=== PATIENT | female | born 1970 | race Caucasian/White ===

== ENCOUNTER 2020-05-14 13:18 | Emergency (ER) | payer BC ==
--- NOTE | 2020-05-14 13:48 | EDM.PDOC ---
ED HPI GENERAL MEDICAL PROBLEM - General Chief Complaint: General Stated Complaint: POSSIBLE INF FROM COLON REMOVAL Time Seen by Provider: 05/14/20 13:40 Source of Information: Reports: Patient History Limitations: Reports: No Limitations - History of Present Illness INITIAL COMMENTS - FREE TEXT/NARRATIVE: Patient comes emergency department today with complaints of what she relates is pouchitis. This patient for the past couple of days has had increased rectal pressure urged to have a bowel movement but unable to go. She has had irritation and inflammation. No bloating no abdominal pain. She has had this many times in the past and was diagnosed with pouchitis at [facility]. She has a history of ulcerative colitis for which she had a colostomy and then eventual reanastomosis and has had recurrence of her pouchitis in the past. No fever no chills. No chest pain no shortness of breath or difficulty breathing. No other abdominal pain nausea or vomiting. No hematuria dysuria or urinary frequency. She has been having regular bowel movements is just more difficult for her to have them. Quite a bit of pressure sensation but unable to have a bowel movement very easily. She typically is on Flagyl for 14 days for this. 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 Rectal Pain Score (Numeric/FACES): 3 - Related Data Allergies Allergy/AdvReac Type Severity Reaction Status Date / Time No Known Allergies Allergy Verified 05/14/20 13:33 Home Meds: Home Meds Ibuprofen [Advil] 400 mg PO Q6HR PRN 05/14/20 [History] Topiramate 50 mg PO BID 05/14/20 [History] metroNIDAZOLE [Metronidazole] 500 mg PO TID #42 tablet 05/14/20 [Rx] Past Medical History Psychiatric History: Reports: Anxiety, Depression, Other (See Below) Other Psychiatric History: chronic fatigue, concentration deficit Endocrine/Metabolic History: Reports: Other (See Below) Other Endocrine/Metabolic History: metabolic syndrome, overweight Hematologic History: Reports: Iron Deficiency Social & Family History - Caffeine Use Caffeine Use: Reports: Coffee ED ROS GENERAL - Review of Systems Review Of Systems: Comprehensive ROS is negative, except as noted in HPI. ED EXAM, GENERAL - Physical Exam Exam: See Below Course - Vital Signs Last Recorded V/S: Last Vital Signs Temp 99.4 F 05/14/20 13:33 Pulse 69 05/14/20 13:33 Resp 16 05/14/20 13:33 BP 122/69 05/14/20 13:33 Pulse Ox 97 05/14/20 13:33 - Orders/Labs/Meds Labs: Laboratory Tests 05/14/20 05/14/20 05/14/20 Range/Units 13:55 13:55 13:55 WBC 8.9 (4.0-10.0) x10^3/uL RBC 4.09 (4.00-5.50) x10^6/uL Hgb 12.6 (12.0-16.0) g/dL Hct 38.2 (33.0-47.0) % MCV 93.4 H (78.0-93.0) fL MCH 30.8 (26.0-32.0) pg MCHC 33.0 (32.0-36.0) g/dL RDW Coeff of Chanel 13.0 (10.0-15.0) % Plt Count 318 (130-400) x10^3/uL Neut % (Auto) 72.4 (50.0-80.0) % Lymph % (Auto) 18.5 L (25.0-50.0) % [place] % (Auto) 7.4 (2.0-11.0) % Eos % (Auto) 1.2 (0.0-4.0) % Baso % (Auto) 0.5 (0.2-1.2) % Sodium 140 (136-145) mmol/L Potassium 3.8 (3.5-5.1) mmol/L Chloride 105 (98-107) mmol/L Carbon Dioxide 25 (21-32) mmol/L Anion Gap 13.8 (10-20) mmol/L BUN 16 (7-18) mg/dL Creatinine 1.0 (0.55-1.02) mg/dL Est Cr Clr Drug Dosing 62.58 mL/min Estimated GFR (MDRD) 59 Glucose 93 (74-106) mg/dL Lactic Acid 0.9 (0.4-2.0) mmol/L Calcium 8.8 (8.5-10.1) mg/dL Corrected Calcium 8.96 (8.5-10.1) mg/dL Total Bilirubin 0.5 (0.2-1.0) mg/dL AST 14 L (15-37) U/L ALT 24 (14-59) U/L Alkaline Phosphatase 72 (46-116) U/L C-Reactive Protein 0.7 (<=0.9) mg/dL Total Protein 7.0 (6.4-8.2) g/dL Albumin 3.8 (3.4-5.0) g/dL Globulin 3.2 Albumin/Globulin Ratio 1.19 Lipase 122 (73-393) U/L Meds: Medications Discontinued Medications Generic Name Dose Route Start Last Admin Trade Name Mady PRN Reason Stop Dose Admin Metronidazole 2 packet 05/14/20 14:39 05/14/20 14:54 Take Home: Metronidazole 500 Mg, 4 Tab Pack PO 05/14/20 14:40 2 packet ONETIME ONE Administration - Re-Assessments/Exams Free Text/Narrative Re-Assessment/Exam: 12/White blood cell count is normal at 0.9. Hemoglobin 12.6. Electrolytes are unremarkable. Lipase is 122. Lactic acid 0.9. Patient's exam is rather unremarkable. Her laboratory evaluation is pristine as well. I had a rather long discussion with this patient about further work-up versus just treatment for the assumption of pouchitis. She does not feel that she needs any further work-up at this time which I think is appropriate as she is a chronic patient who is well aware of her own symptomology and her labora tory evaluation and exam is rather unremarkable. We will treat her with Flagyl 500 mg p.o. 3 times daily for the next 14 days. I would also like her to contact her [facility] team early in the week. The patient was supplied with her labs today. If she has any problems over the weekend please contact me in the emergency department. She is comfortable with this plan and her questions were answered. Departure - Departure Time of Disposition: 14:39 Disposition: Home, Self-Care 01 Clinical Impression: Pouchitis - Discharge Information Prescriptions: metroNIDAZOLE [Metronidazole] 500 mg PO TID #42 tablet Referrals: Patricia Kaba PA-C [Primary Care Provider] - Forms: ED Department Discharge Additional Instructions: Increase your fluids over the next few days. Flagyl, 1 tablet 4 times a day for the next 2 weeks. First two days dispensed from the ED and RX sent to [facility]. Contact your [facility] on saturday for recheck and follow up. We supplied you with your labs today as well. Please contact me over the weekend if any problems or concerns. Return to the ED if new or worsening symptoms. Sepsis Event Note (ED) - Evaluation Sepsis Screening Result: No Definite Risk
[2020-05-14 14:25] LABS: ANION GAP 13.8 mmol/L (10-20)
[2020-05-14] MEDS ORDERED: Take Home: metroNIDAZOLE 500 MG Tab, 4 Tab Pack PO ONE (14:39)
== END 2020-05-14 14:55 | disposition home or self-care (01) ==
LOC: VM.ED 13:18
DX: K91.850 Pouchitis (principal)
CPT/HCPCS: 36415; 80053; 83605; 83690; 85025; 86140; 99283; A9270; 99284

== ENCOUNTER 2021-06-08 03:20 | Emergency (ER) | payer BC ==
[2021-06-08] MEDS ORDERED: Take Home: Codeine/Promethazine 10-6.25 MG/5 ML Syrup 5 ML, 2 Cup Pack PO ONE (03:34)
[2021-06-08] MEDS ORDERED: Codeine/Promethazine 10-6.25 MG/5 ML Syrup 5 ML UD Cup PO ONE (03:35)
--- NOTE | 2021-06-08 03:42 | EDM.PDOC ---
ED HPI GENERAL MEDICAL PROBLEM - General Chief Complaint: Respiratory Problem Stated Complaint: Cough Time Seen by Provider: 06/08/21 03:33 Source of Information: Reports: Patient History Limitations: Reports: No Limitations - History of Present Illness INITIAL COMMENTS - FREE TEXT/NARRATIVE: Patient presents to the ED with complaints of cough for about a week. Had a covid test on Saturday that was negative. Denies fever, chills, nausea, vomiting. Does relay headache due to days of chronic cough. Tessalon perles not helping. OTC cough syrup not effective. No sob. Chest pain from coughing. 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) - Related Data Allergies Allergy/AdvReac Type Severity Reaction Status Date / Time No Known Allergies Allergy Verified 06/08/21 03:35 Home Meds: Home Meds Ibuprofen [Advil] 400 mg PO Q6HR PRN 05/14/20 [History] Topiramate 50 mg PO BID 05/14/20 [History] Benzonatate 200 mg PO TID PRN 06/08/21 [History] Celecoxib 200 mg PO DAILY 06/08/21 [History] Past Medical History Gastrointestinal History: Reports: Other (See Below) Other Gastrointestinal History: Ulcerative Colitis Psychiatric History: Reports: Anxiety, Depression, Other (See Below) Other Psychiatric History: chronic fatigue, concentration deficit Endocrine/Metabolic History: Reports: Other (See Below) Other Endocrine/Metabolic History: metabolic syndrome, overweight Hematologic History: Reports: Iron Deficiency - Past Surgical History GI Surgical History: Reports: Other (See Below) Other GI Surgeries/Procedures: Colostomy reversal Social & Family History - Family History Family Medical History: Unobtainable - Caffeine Use Caffeine Use: Reports: None ED ROS GENERAL - Review of Systems Review Of Systems: See Below Constitutional: Reports: No Symptoms HEENT: Reports: No Symptoms Respiratory: Reports: Cough Cardiovascular: Reports: No Symptoms Endocrine: Reports: No Symptoms GI/Abdominal: Reports: No Symptoms : Reports: No Symptoms Musculoskeletal: Reports: No Symptoms Skin: Reports: No Symptoms Psychiatric: Reports: No Symptoms Hematologic/Lymphatic: Reports: No Symptoms Immunologic: Reports: No Symptoms ED EXAM, GENERAL - Physical Exam Exam: See Below Exam Limited By: No Limitations General Appearance: Alert, WD/WN, No Apparent Distress Ears: Normal TMs Nose: Normal Inspection, Normal Mucosa, No Blood Throat/Mouth: Normal Inspection, Normal Lips, Normal Teeth, Normal Gums, Normal Oropharynx, Normal Voice, No Airway Compromise Head: Atraumatic, Normocephalic Neck: Normal Inspection, Supple, Non-Tender, Full Range of Motion Respiratory/Chest: No Respiratory Distress, Lungs Clear, Normal Breath Sounds, No Accessory Muscle Use, Chest Non-Tender Cardiovascular: Normal Peripheral Pulses, Regular Rate, Rhythm, No Edema, No Gallop, No JVD, No Murmur, No Rub GI/Abdominal: Normal Bowel Sounds, Soft, Non-Tender, No Organomegaly, No Distention, No Abnormal Bruit, No Mass Back Exam: Normal Inspection, Full Range of Motion, NT Extremities: Normal Inspection, Normal Range of Motion, Non-Tender, Normal Capillary Refill, No Pedal Edema Neurological: Alert, Oriented, CN II-XII Intact, Normal Cognition, Normal Gait, Normal Reflexes, No Motor/Sensory Deficits Psychiatric: Normal Affect, Normal Mood Skin Exam: Warm, Dry, Intact, Normal Color, No Rash Lymphatic: No Adenopathy Departure - Departure Time of Disposition: 03:57 Disposition: Home, Self-Care 01 Condition: Good Clinical Impression: Acute bronchiolitis - Discharge Information *PRESCRIPTION DRUG MONITORING PROGRAM REVIEWED*: Not Applicable *COPY OF PRESCRIPTION DRUG MONITORING REPORT IN PATIENT TAMIKO: Not Applicable Instructions: Viral Respiratory Infection, [id number] Additional Instructions: 1. Stay well hydrated 2. Continue the OTC medications and add the phenergan with codeine cough syrup 3. Follow up with primary if symptoms do not improve over the next 5-7 days 4. Please call or return if you have any questions or worsening of symptoms - Problem List & Annotations (1) Acute bronchiolitis SNOMED Code(s): 7818178 Code(s): J21.9 - ACUTE BRONCHIOLITIS, UNSPECIFIED Status: Acute Qualifiers: Bronchiolitis organism: unspecified organism Qualified Code(s): J21.9 - Acute bronchiolitis, unspecified
== END 2021-06-08 03:56 | disposition home or self-care (01) ==
LOC: VM.ED 03:20
DX: J21.9 Acute bronchiolitis, unspecified (principal)
CPT/HCPCS: 99283; A9270-GY

== ENCOUNTER 2023-06-17 17:31 | Emergency (ER) | payer BC ==
[2023-06-17] MEDS ORDERED: HYDROmorphone 0.5 MG/0.5 ML Syringe IVPUSH ONE ×2 (17:47→18:22)
[2023-06-17] MEDS ORDERED: Naloxone 0.4 MG/ML SDV IVPUSH PRN (17:47)
[2023-06-17] MEDS ORDERED: Sodium Chloride 0.9% 1,000 ML IV ONE ×2 (17:47→19:51)
[2023-06-17 17:55] LABS: BASOPHILS ABSOLUTE AUTO 0.1 x10^3/uL (0.0-0.2); BASOPHILS PERCENT AUTO 0.6 % (0.2-1.2); EOSINOPHILS ABSOLUTE AUTO 0.1 x10^3/uL (0.0-0.5); EOSINOPHILS PERCENT AUTO 1.6 % (0.0-4.0); HEMOGLOBIN 13.2 g/dL (12.0-16.0); IMMATURE GRAN ABSOLUTE AUTO 0.02 x10^3/uL (0.00-0.07); LYMPHOCYTES ABSOLUTE AUTO 2.7 x10^3/uL (1.0-4.8); LYMPHOCYTES PERCENT AUTO 30.6 % (25.0-50.0); MEAN CORPUSCULAR HEMOGLOBIN 30.6 pg (26.0-32.0); MEAN CORPUSCULAR VOLUME 92.8 fL (78.0-93.0); MONOCYTES ABSOLUTE AUTO 0.6 x10^3/uL (0.0-0.8); MONOCYTES PERCENT AUTO 6.5 % (2.0-11.0); NEUTROPHILS ABSOLUTE AUTO 5.4 x10^3/uL (1.8-7.7); NEUTROPHILS PERCENT AUTO 60.5 % (50.0-80.0); PLATELET COUNT,PLT 333 x10^3/uL (130-400); RED BLOOD CELL COUNT 4.31 x10^6/uL (4.00-5.50)
[2023-06-17 18:09] LABS: A/G RATIO 1.23; ALANINE AMINOTRANSFERASE,ALT 15 U/L (14-59); ALBUMIN 3.7 g/dL (3.4-5.0); ALKALINE PHOSPHATASE 47 U/L (46-116); ANION GAP 15.5 mmol/L (5-15); BILIRUBIN TOTAL 0.3 mg/dL (0.2-1.0); BLOOD UREA NITROGEN,BUN 21 mg/dL (7-18); CALCIUM 8.6 mg/dL (8.5-10.1); CARBON DIOXIDE,CO2 24 mmol/L (21-32); CHLORIDE,CL 105 mmol/L (98-107); ESTIMATED GFR 69 mL/min (>=60); GLUCOSE RANDOM 114 mg/dL (70-99); LIPASE 43 U/L (19-71); POTASSIUM,K 3.5 mmol/L (3.5-5.1); PROTEIN TOTAL,TP 6.7 g/dL (6.4-8.2); SODIUM,NA 141 mmol/L (136-145)
[2023-06-17 18:10] LABS: C-REACTIVE PROTEIN < 0.50 mg/dL (<=0.50)
[2023-06-17 18:19] LABS: ASPARTATE AMNIOTRANSFERASE,AST < 10 U/L (15-37)
[2023-06-17] MEDS ORDERED: Iopamidol 612 MG/ML 100 ML Bottle IVPUSH ONE (18:33)
[2023-06-17] MEDS ORDERED: Ketorolac 30 MG/ML SDV IVPUSH ONE (19:44)
[2023-06-17] MEDS ORDERED: Tamsulosin 0.4 MG Cap.ER PO ONE (19:44)
[2023-06-17 20:45] LABS: BILIRUBIN,URINE NEGATIVE (NEGATIVE); COLOR,URINE LIGHT YELLOW (YELLOW); GLUCOSE,URINE NEGATIVE (NEGATIVE); KETONES,URINE NEGATIVE (NEGATIVE); LEUKOCYTE ESTERASE,URINE MODERATE (NEGATIVE); NITRITE,URINE NEGATIVE (NEGATIVE); OCCULT BLOOD,URINE MODERATE (NEGATIVE); PROTEIN,URINE NEGATIVE (NEGATIVE); UROBILINOGEN,URINE 0.2 EU/dL (0.2)
[2023-06-17 20:47] LABS: APPEARANCE,URINE SLIGHTLY CLOUDY (CLEAR)
[2023-06-17 20:53] LABS: BACTERIA,URINE RARE /HPF (NOT SEEN); MUCUS,URINE RARE /LPF (NOT SEEN); RBC,URINE 20-30 /HPF (NOT SEEN); SQUAMOUS EPITHELIAL CELLS,UR FEW /HPF (NOT SEEN); WBC,URINE 20-30 /HPF (NOT SEEN)
[2023-06-17] MEDS ORDERED: Take Home: Ondansetron 4 MG Tab.DIS, 5 Tab Pack PO ONE (20:59)
[2023-06-17] MEDS ORDERED: Sulfamethoxazole/Trimethoprim 800-160 MG Tab PO ONE (20:59)
[2023-06-17] MEDS ORDERED: Take Home: Ketorolac 10 MG Tab, 4 Tab Pack PO ONE (20:59)
[2023-06-17] MEDS ORDERED: Take Home: Acetaminophen/oxyCODONE 325-5 MG, 5 Tab Pack PO ONE (20:59)
== END 2023-06-17 21:25 | disposition home or self-care (01) ==
LOC: VM.ED 17:31
DX: N13.2 Hydronephrosis with renal and ureteral calculous obstruction (principal)
CPT/HCPCS: 74177; 80053; 81001; 83690; 85025; 86140; 87086; 96361; 96374; 96375; 99284; A9270; J1170; J1885; J7030; Q0162; Q9967; 87088; 87186

== ENCOUNTER 2024-07-26 01:35 | Emergency (ER) | payer BC ==
[2024-07-26] MEDS ORDERED: Sodium Chloride 0.9% 10 ML Syringe FLUSH PRN (01:58)
[2024-07-26 02:10] LABS: BASOPHILS ABSOLUTE AUTO 0.1 x10^3/uL (0.0-0.2); BASOPHILS PERCENT AUTO 0.5 % (0.2-1.2); EOSINOPHILS ABSOLUTE AUTO 0.2 x10^3/uL (0.0-0.5); EOSINOPHILS PERCENT AUTO 1.6 % (0.0-4.0); HEMATOCRIT 40.2 % (33.0-47.0); HEMOGLOBIN 13.7 g/dL (12.0-16.0); IMMATURE GRAN ABSOLUTE AUTO 0.02 x10^3/uL (0.00-0.07); LYMPHOCYTES ABSOLUTE AUTO 1.9 x10^3/uL (1.0-4.8); LYMPHOCYTES PERCENT AUTO 17.4 % (25.0-50.0); MEAN CORPUSCULAR HEMOGLOBIN 31.4 pg (26.0-32.0); MEAN CORPUSCULAR HGB CONC 34.1 g/dL (32.0-36.0); MEAN CORPUSCULAR VOLUME 92.2 fL (78.0-93.0); MONOCYTES ABSOLUTE AUTO 0.5 x10^3/uL (0.0-0.8); MONOCYTES PERCENT AUTO 4.9 % (2.0-11.0); NEUTROPHILS ABSOLUTE AUTO 8.2 x10^3/uL (1.8-7.7); NEUTROPHILS PERCENT AUTO 75.4 % (50.0-80.0); PLATELET COUNT,PLT 281 x10^3/uL (130-400); RED BLOOD CELL COUNT 4.36 x10^6/uL (4.00-5.50); WHITE BLOOD CELL COUNT,WBC 10.9 x10^3/uL (4.0-10.0)
[2024-07-26] MEDS: Ketorolac 30 MG/ML SDV IVPUSH ONE (02:12)
[2024-07-26] MEDS: Ondansetron 4 MG/2 ML SDV IVPUSH ONE (02:13)
[2024-07-26] MEDS: Lactated Ringers 1,000 ML IV ONE (02:13)
[2024-07-26 02:16] LABS: APPEARANCE,URINE SLIGHTLY CLOUDY (CLEAR); BILIRUBIN,URINE NEGATIVE (NEGATIVE); COLOR,URINE YELLOW (YELLOW); GLUCOSE,URINE NEGATIVE (NEGATIVE); KETONES,URINE NEGATIVE (NEGATIVE); LEUKOCYTE ESTERASE,URINE SMALL (NEGATIVE); NITRITE,URINE NEGATIVE (NEGATIVE); OCCULT BLOOD,URINE MODERATE (NEGATIVE); PROTEIN,URINE TRACE mg/dL (NEGATIVE); UROBILINOGEN,URINE 0.2 EU/dL (0.2)
[2024-07-26 02:25] LABS: BACTERIA,URINE RARE /HPF (NOT SEEN); RBC,URINE 20-30 /HPF (NOT SEEN); SQUAMOUS EPITHELIAL CELLS,UR FEW /HPF (NOT SEEN); WBC,URINE 0-5 /HPF (NOT SEEN)
[2024-07-26 02:29] LABS: A/G RATIO 1.2; ALBUMIN 3.6 g/dL (3.4-5.0); ANION GAP 18.5 mmol/L (5-15); BILIRUBIN TOTAL 0.4 mg/dL (0.2-1.0); CALCIUM 8.7 mg/dL (8.5-10.1); CREATININE 1.2 mg/dL (0.55-1.02); EST CRCL DRUG DOSING (CG) 49.91 mL/min; POTASSIUM,K 3.5 mmol/L (3.5-5.1); PROTEIN TOTAL,TP 6.6 g/dL (6.4-8.2)
[2024-07-26] MEDS: fentaNYL 50 MCG/ML SDV IVPUSH PRN (03:06)
[2024-07-26] MEDS: Tamsulosin 0.4 MG Cap.ER PO ONE (03:31)
[2024-07-26] MEDS: Take Home: Ondansetron 4 MG Tab.DIS, 5 Tab Pack PO ONE (03:56)
[2024-07-26] MEDS: Take Home: Ketorolac 10 MG Tab, 4 Tab Pack PO ONE (03:56)
[2024-07-26] MEDS: Take Home: Acetaminophen/oxyCODONE 325-5 MG, 5 Tab Pack PO ONE (03:56)
== END 2024-07-26 04:00 | disposition home or self-care (01) ==
LOC: VM.ED 01:35
DX: N13.2 Hydronephrosis with renal and ureteral calculous obstruction (principal); Z79.899 Other long term (current) drug therapy; Z79.2 Long term (current) use of antibiotics; Z88.5 Allergy status to narcotic agent
CPT/HCPCS: 74176; 80053; 81001; 83690; 85025; 87086; 96361; 96374; 96375; 99284; A9270; J1885; J2405; J3010; J7120; Q0162; 87088; 87186